=== PATIENT | female | born 1970 | race Caucasian/White ===

== ENCOUNTER 2020-07-12 14:58 | Emergency (ER) | payer OTHER ==
[~2020-07-12] VITALS: Ht 167.6 cm; Wt 72.6 kg
[~2020-07-12 14:58] MED LIST: BACTRIM DS TAB1 EACH PO; NOHOMEMEDICATIONS; PYRIDIUM200 MG PO
[2020-07-12] MEDS ORDERED: FLEXERIL PO (15:20)
[2020-07-12] MEDS ORDERED: DOXYCYCLINE 10100 MG PO (16:42)
[2020-07-12] MEDS ORDERED: MEDROLDOSEPACK PO (16:42)
[2020-07-12 16:53] VITALS: BP 155/80
== END 2020-07-12 16:54 | disposition home or self-care (01) ==
LOC: M.ERS 14:58
DX: M54.5 Low back pain (principal); M54.2 Cervicalgia; L02.811 Cutaneous abscess of head [any part, except face]; Z79.899 Other long term (current) drug therapy; V89.2XXA Person injured in unspecified motor-vehicle accident, traffic, initial encounter; Y93.89 Activity, other specified; Y92.488 Other paved roadways as the place of occurrence of the external cause; Y99.8 Other external cause status